=== PATIENT | male | born 1965 | race African-American/Black ===

== ENCOUNTER → 2016-11-29 | Outpatient (CLI) | payer OTHER ==
[~2016-11-29] VITALS: Ht 182.9 cm; Wt 110.2 kg
[~2016-11-29] MED LIST: ATOR40TA75 PO; NS 1,000 ML IV SCH; PROPOFOL 200 MG/20 ML VIAL As Ordered ONE; VITA100067 PO; VITA1CAP40 PO
--- NOTE | 2016-11-29 14:39 | ROOR ---
Patient Name: Cresencio Trujillo Procedure Date: 11/29/2016 2:12 PM Date of : 1965 Age: 51 Room: [facility] Gender: Male Note Status: Finalized Procedure: Colonoscopy Indications: High risk colon cancer surveillance: Personal history of colonic polyps Providers: Wiley Madera Jr, MD Referring MD: Carolina NORRIS [facility], [facility], Admin. Requesting Provider: Medicines: Propofol per Anesthesia Complications: No immediate complications. Procedure: Pre-Anesthesia Assessment: - Prior to the procedure, a History and Physical was performed, and patient medications and allergies were reviewed. The patient is competent. The risks and benefits of the procedure and the sedation options and risks were discussed with the patient. All questions were answered and informed consent was obtained. Patient identification and proposed procedure were verified by the physician and the nurse in the pre-procedure area and in the procedure room. Mental Status Examination: alert and oriented. Airway Examination: normal oropharyngeal airway and neck mobility. Respiratory Examination: clear to auscultation. CV Examination: normal. ASA Grade Assessment: II - A patient with mild systemic disease. After reviewing the risks and benefits, the patient was deemed in satisfactory condition to undergo the procedure. The anesthesia plan was to use moderate sedation / analgesia (conscious sedation). Immediately prior to administration of medications, the patient was re-assessed for adequacy to receive sedatives. The heart rate, respiratory rate, oxygen saturations, blood pressure, adequacy of pulmonary ventilation, and response to care were monitored throughout the procedure. The physical status of the patient was re-assessed after the procedure. The Colonoscope was introduced through the anus and advanced to the cecum, identified by appendiceal orifice and ileocecal valve. The colonoscopy was performed without difficulty. The patient tolerated the procedure well. The quality of the bowel preparation was adequate and good. Findings: The perianal and digital rectal examinations were normal. Pertinent negatives include normal sphincter tone, no palpable rectal lesions and no anal lesion or abnormality was detected. The sigmoid colon, descending colon, transverse colon, ascending colon, cecum, appendiceal orifice and ileocecal valve appeared normal. Four hyperplastic polyps were found in the rectum and recto-sigmoid colon. The polyps were diminutive in size. These polyps were removed with a hot snare. Resection was complete, but the polyp tissue was not retrieved. Impression: - The sigmoid colon, descending colon, transverse colon, ascending colon, cecum, appendiceal orifice and ileocecal valve are normal. - Four diminutive polyps in the rectum and at the recto-sigmoid colon, removed with a hot snare. Complete resection. Polyp tissue not retrieved. Recommendation: - Discharge patient to home (ambulatory). - Repeat colonoscopy in 5 years for surveillance. Wiley Madera MD Wiley Madera Jr, MD 11/29/2016 2:39:01 PM This report has been signed electronically. Number of Addenda: 0 Note Initiated On: 11/29/2016 2:12 PM Estimated Blood Loss: Estimated blood loss: none.
[2016-11-29 14:58] VITALS: BP 141/92
== END | disposition home or self-care (01) ==
LOC: M OPP 13:45 → EDBD 14:00
PROVIDERS: ATTEND Surgery
DX: Z09 Encounter for follow-up examination after completed treatment for conditions other than malignant neoplasm (principal); Z86.010 Personal history of colon polyps; D12.7 Benign neoplasm of rectosigmoid junction; K62.1 Rectal polyp; E78.5 Hyperlipidemia, unspecified; E66.9 Obesity, unspecified; Z87.891 Personal history of nicotine dependence; F12.20 Cannabis dependence, uncomplicated; Z79.899 Other long term (current) drug therapy; Z80.1 Family history of malignant neoplasm of trachea, bronchus and lung

== ENCOUNTER 2018-07-12 07:49 | Inpatient (IN) | payer OTHER ==
[~2018-07-12] VITALS: Ht 182.9 cm; Wt 108.6 kg
[~2018-07-12 07:49] MED LIST changes: -NS 1,000 ML IV SCH; -PROPOFOL 200 MG/20 ML VIAL As Ordered ONE; -VITA1CAP40 PO; +VITA50005 PO
[2018-07-12] MEDS ORDERED: ROSU10TA5 PO (08:00)
[2018-07-12] MEDS ORDERED: LOPR1TAB6 PO (08:00)
[2018-07-12 08:30] LABS: BASO % 0.2 % (0.0-1.0); EOS # 0.1 10^3/uL (0.0-0.50); EOS % 0.9 % (0.0-3.0); HEMATOCRIT 34.5 % (42.0-52.0); HEMOGLOBIN 11.5 g/dl (13.5-17.5); LYMPH # 1.5 10^3/uL (1.5-4.5); LYMPH % 27.5 % (24.0-44.0); MEAN CORPUSCULAR HEMOGLOBIN 27.3 pg (27.0-33.0); MEAN CORPUSCULAR HGB CONC 33.3 g/dl (32.0-36.5); MEAN CORPUSCULAR VOLUME 81.9 fl (80.0-96.0); MONO # 0.5 10^3/uL (0.0-0.8); MONO % 9.1 % (0.0-5.0); NEUTROPHILS # 3.3 10^3/uL (1.8-7.7); NEUTROPHILS % 61.7 % (36.0-66.0); PLATELET COUNT, AUTOMATED 144 10^3/uL (150-450); RED BLOOD COUNT 4.21 10^6/uL (4.30-6.10); WHITE BLOOD COUNT 5.3 10^3/uL (4.0-10.0)
[2018-07-12 08:42] LABS: INR 1.11; PROTHROMBIN TIME 14.4 SECONDS (12.1-14.4)
[2018-07-12 08:43] LABS: PARTIAL THROMBOPLASTIN TIME 33.9 SECONDS (25.4-37.6)
--- NOTE | 2018-07-12 08:43 | REP ---
Chest two views HISTORY: Chest pain Comparison: None A minimal increase in interstitial markings is present in the lungs. The cardiac silhouette is enlarged. The pulmonary vasculature is prominent. The heart is normal in size. The pulmonary vasculature is normal in appearance. The bony structure is intact. IMPRESSION: There is a minimal increase in interstitial markings in the lungs. This may represent interstitial edema or infiltrates. Electronically Signed by jR Ordaz MD 07/12/2018 08:35 A
[2018-07-12 08:45] LABS: D-DIMER QUANT 3378.01 ng/ml (<500)
[2018-07-12 08:59] LABS: ALBUMIN 3.8 GM/DL (3.2-5.2); ALT/SGPT 54 U/L (12-78); BILIRUBIN,DIRECT 0.4 MG/DL (0.0-0.2); BILIRUBIN,TOTAL 1.8 MG/DL (0.2-1.0); BLOOD UREA NITROGEN 23 MG/DL (7-18); CALCIUM LEVEL 8.7 MG/DL (8.5-10.1); CARBON DIOXIDE LEVEL 25 MEQ/L (21-32); CHLORIDE LEVEL 108 MEQ/L (98-107); CPK CREATINE PHOSPHOKINASE 269 U/L (39-308); CREATININE FOR GFR 1.21 MG/DL (0.70-1.30); FREE T4 2.27 NG/DL (0.76-1.46); GLOMERULAR FILTRATION RATE > 60.0 (>56); GLUCOSE, FASTING 124 MG/DL (70-100); LIPASE 97 U/L (73-393); MAGNESIUM LEVEL 1.9 MG/DL (1.8-2.4); MB/CK RELATIVE INDEX 0.89 (< OR =4); NT-PRO BNP 4063 PG/ML (<125); POTASSIUM SERUM 3.6 MEQ/L (3.5-5.1); SODIUM LEVEL 141 MEQ/L (136-145); TROPONIN I 0.35 NG/ML (< 0.10)
[2018-07-12] MEDS ORDERED: ISOVUE-370 76% 100ML VIAL (Q9967) As Ordered ONE (09:10)
[2018-07-12] MEDS ORDERED: FUROSEMIDE 20 MG/2 ML VIAL (J1940) IV ONE ×2 (09:15→13:00)
[2018-07-12] MEDS ORDERED: NS 1,000 ML IV ONE (09:15)
[2018-07-12] MEDS ORDERED: ASPIRIN 81 MG CHEW TABLET PO ONE (09:15)
--- NOTE | 2018-07-12 09:54 | REP ---
CT ANGIO CHEST: HISTORY: Tachypnea. CONTRAST: Isovue 370, 75 mL. There are no filling defects in the main , right and left pulmonary arteries or their branches. Peribronchial cuffing is present. There is no pleural effusion. The heart is normal in size. There is no aneurysm. There is no mediastinal mass. Minimal degenerative change is present in the thoracic spine. IMPRESSION: 1. There is no pulmonary embolism. 2. There is peribronchial cuffing. This may represent asthma, bronchitis, or possibly interstitial pneumonitis. Electronically Signed by Rj Ordaz MD 07/12/2018 09:59 A
[2018-07-12 11:36] LABS: MB/CK RELATIVE INDEX 0.97 (< OR =4); TROPONIN I 0.33 NG/ML (< 0.10)
[2018-07-12] MEDS ORDERED: VITA-183 PO (12:25)
[2018-07-12] MEDS ORDERED: DEXT118S PO (12:25)
[2018-07-12] MEDS ORDERED: ROSU20TA4 PO (12:25)
[2018-07-12 13:35] VITALS: BP 143/106
[2018-07-12] MEDS: ENOXAPARIN 40 MG/0.4 ML SYRINGE (J1650) SC SCH (13:53)
[2018-07-12] MEDS: METOPROLOL TART 50 MG TAB PO SCH ×2 (13:56→20:17)
--- NOTE | 2018-07-12 14:47 | ECGEPIP ---
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
--- NOTE | 2018-07-12 14:50 | ECGEPIP ---
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
[2018-07-12 15:37] VITALS: BP 138/98
[2018-07-12 16:00] VITALS: BP 142/98
--- NOTE | 2018-07-12 16:05 | HPEPDOC ---
General Date of Admission Jul 12, 2018 at 12:27 Chief Complaint The patient is a 52-year-old male admitted with a reason for visit of CHF. History of Present Illness 52-year-old male with past medical history of hypertension and dyslipidemia presents to the ER with chief complaint of increasing fatigue over the last 4 months, and shortness of breath over the last 2 weeks. The patient states that his symptoms began early in the year when he began to feel increasingly fatigued. This culminated over the last several days when he began to feel increasing shortness of breath when walking across a room. He reports feeling l jennifer he was walking underwater. Normally, the patient states that he was not restricted by any physical activity. He states that he was able to get around okay about 6 months ago. However, over the last 2 weeks he states that he is feeling more fatigued and short of breath with minimal activity. He also describes feeling short of breath when laying flat at night. He denies any lower extremity swelling or complaints of chest pain. He denies any history of coronary artery disease. In addition, the patient denies any fevers, chills, abdominal pain, cough, sputum production, or any nausea/vomiting/diarrhea. In the ER, patient was noted to be in decompensated congestive heart failure. He was given a small dose of IV Lasix and subsequently put out 1.5 L of urine with improvement of his symptoms. The patient will be admitted to the hospitalist service for further evaluation and management. Home Medications Scheduled Cholecalciferol (Vitamin D3) (Vitamin D3) 1,000 Unit Capsule, 1,000 UNIT PO QHS, (Reported) Metoprolol Tartrate (Lopressor) 50 Mg Tablet, 50 MG PO BID, (Reported) Rosuvastatin Calcium (Rosuvastatin Calcium) 20 Mg Tablet, 10 MG PO QHS, (Reported) Scheduled PRN Dextromethorphan Hb/Doxylamine (Nighttime Cough Liquid) 118 Ml Solution, 1 DOSE PO QHS PRN for COUGH, (Reported) Allergies Coded Allergies: No Known Allergies (Unverified , 11/22/16) Past Medical History Medical History As noted in HPI Social History * Smoker: former Smoker (Smoked 1-2PPD of tobacco for 30+ years, quit 10 years ago) Alcohol: occationally Drugs: marijuana (daily, q2d) A-FIB/CHADSVASC A-FIB History Current/History of A-Fib/PAF?: No Review of Systems Other systems 10 point review of systems negative unless otherwise specified in HPI. Physical Examination General Exam: Positive: Alert, Cooperative, No Acute Distress ENT Exam: Positive: Atraumatic, Mucous membr. moist/pink Neck Exam: Positive: JVD Chest Exam: Positive: Rales (faint bibasilar rales noted on auscultation bilaterally) Heart Exam: Positive: Rate Normal, Normal S1, Normal S2 Telemetry: Positive: Sinus Abdomen Exam: Positive: Soft; Negative: Tenderness Extremity Exam: Negative: Tenderness, Swelling Psych Exam: Positive: Oriented x 3 Vital Signs Vital Signs Date Time Temp Pulse Resp B/P (MAP) Pulse Ox O2 Delivery O2 Flow Rate FiO2 07/12/18 15:37 138/98 (111) 07/12/18 13:56 79 07/12/18 13:35 98.1 18 98 07/12/18 12:30 Room Air Laboratory Data Labs 24H Laboratory Tests 2 07/12/18 08:18: Prothrombin Time 14.4, Prothromb Time International Ratio 1.11, Activated Partial Thromboplast Time 33.9, D-Dimer, Quantitative 3378.01H 07/12/18 08:19: Immature Granulocyte % (Auto) 0.6, White Blood Count 5.3, Red Blood Count 4.21L, Hemoglobin 11.5L, Hematocrit 34.5L, Mean Corpuscular Volume 81.9, Mean Corpuscular Hemoglobin 27.3, Mean Corpuscular Hemoglobin Concent 33.3, Red Cell Distribution Width 16.8H, Platelet Count 144L, Neutrophils (%) (Auto) 61.7, Lymphocytes (%) (Auto) 27.5, Monocytes (%) (Auto) 9.1H, Eosinophils (%) (Auto) 0.9, Basophils (%) (Auto) 0.2, Neutrophils # (Auto) 3.3, Lymphocytes # (Auto) 1.5, Monocytes # (Auto) 0.5, Eosinophils # (Auto) 0.1, Basophils # (Auto) 0.0, Nucleated Red Blood Cells % (auto) 0.0, Anion Gap 8, Glomerular Filtration Rate > 60.0, Calcium Level 8.7, Magnesium Level 1.9, Aspartate Amino Transf (AST/SGOT) 29, Alanine Aminotransferase (ALT/SGPT) 54, Alkaline Phosphatase 94, Total Bilirubin 1.8H, Direct Bilirubin 0.4H, Total Creatine Kinase 269, Creatine Kinase MB 2.0, Creatine Kinase MB Relative Index 0.89, Troponin I 0.35H, NC-Rxb-U-Type Natriuretic Peptide 4063H, Total Protein 7.0, Albumin 3.8, Albumin/Globulin Ratio 1.19, Lipase 97, Thyroid Stimulating Hormone (TSH) 1.570, Free Thyroxine 2.27H 07/12/18 10:56: Total Creatine Kinase 248, Creatine Kinase MB 2.0, Creatine Kinase MB Relative Index 0.97, Troponin I 0.33H CBC/BMP Laboratory Tests 07/12/18 08:19 Red Blood Count 4.21 L, Mean Corpuscular Volume 81.9, Mean Corpuscular Hemoglobin 27.3, Mean Corpuscular Hemoglobin Concent 33.3, Red Cell Distribution Width 16.8 H, Neutrophils (%) (Auto) 61.7, Lymphocytes (%) (Auto) 27.5, Monocytes (%) (Auto) 9.1 H, Eosinophils (%) (Auto) 0.9, Basophils (%) (Auto) 0.2, Neutrophils # (Auto) 3.3, Lymphocytes # (Auto) 1.5, Monocytes # (Auto) 0.5, Eosinophils # (Auto) 0.1, Basophils # (Auto) 0.0 Plan / VTE VTE Prophylaxis Ordered?: Yes Plan Plan Decompensated CHF Patient clinically and radiographically with evidence of decompensated CHF 2D ECHO ordered IV Lasix Monitor I/O's Fluid Restriction Daily Weights We will cont to monitor the patient's clinical condition Elevated Troponin Markers likely 2/2 Decompensated CHF EKG with non-specific ST changes with no prior tracings to compare to Patient denies any c/o chest pain, palpitations Dr. Bynum of Cardiology consulted, discussed the case with him and he does not recommend transfer at this time for cardiac catheterization, as this is likely secondary to decompensated CHF. ASA added, Cont Metoprolol, Statin 2D Echo ordered as mentioned above Monitor on Telemetry We will continue to monitor serial troponin markers Hypertension Cont Metoprolol Dyslipidemia Cont Statin DVT Prophylaxis Lovenox LORI CARMEN MD Jul 12, 2018 16:05
[2018-07-12] MEDS ORDERED: FUROSEMIDE 40 MG/4 ML VIAL (J1940) IV SCH (17:00)
[2018-07-12 20:00] VITALS: BP 154/68
[2018-07-12] MEDS: VITAMIN D 1,000 INTERNATIONAL UNITS TABLET PO SCH (20:17)
[2018-07-12] MEDS: ROSUVASTATIN 10 MG TAB (CRESTOR) PO SCH (20:17)
[2018-07-12 20:22] LABS: MB/CK RELATIVE INDEX 0.84 (< OR =4); TROPONIN I 0.36 NG/ML (< 0.10)
[2018-07-12 23:59] VITALS: BP 141/98
[2018-07-13 04:00] VITALS: BP 149/91
[2018-07-13 05:26] LABS: HEMATOCRIT 34.8 % (42.0-52.0); HEMOGLOBIN 11.4 g/dl (13.5-17.5); MEAN CORPUSCULAR HEMOGLOBIN 26.6 pg (27.0-33.0); MEAN CORPUSCULAR HGB CONC 32.8 g/dl (32.0-36.5); MEAN CORPUSCULAR VOLUME 81.3 fl (80.0-96.0); PLATELET COUNT, AUTOMATED 154 10^3/uL (150-450); RED BLOOD COUNT 4.28 10^6/uL (4.30-6.10); WHITE BLOOD COUNT 6.2 10^3/uL (4.0-10.0)
[2018-07-13 05:40] LABS: HEMOGLOBIN A1c 6.4 %
[2018-07-13 05:51] LABS: ALBUMIN 3.3 GM/DL (3.2-5.2); ALT/SGPT 48 U/L (12-78); BILIRUBIN,DIRECT 0.3 MG/DL (0.0-0.2); BILIRUBIN,TOTAL 1.7 MG/DL (0.2-1.0); BLOOD UREA NITROGEN 22 MG/DL (7-18); CALCIUM LEVEL 8.8 MG/DL (8.5-10.1); CARBON DIOXIDE LEVEL 29 MEQ/L (21-32); CHLORIDE LEVEL 104 MEQ/L (98-107); CHOLESTEROL LEVEL 161 MG/DL (<200); CHOLESTEROL RISK RATIO 4.351 (<5); CPK CREATINE PHOSPHOKINASE 169 U/L (39-308); CREATININE FOR GFR 1.44 MG/DL (0.70-1.30); GLOMERULAR FILTRATION RATE > 60.0 (>56); GLUCOSE, FASTING 160 MG/DL (70-100); HDL CHOLESTEROL 37 MG/DL (>40); LDL CHOLESTEROL 105 MG/DL (<100); MAGNESIUM LEVEL 1.8 MG/DL (1.8-2.4); MB/CK RELATIVE INDEX 0.89 (< OR =4); NON-HDL-C 124 MG/DL; POTASSIUM SERUM 3.5 MEQ/L (3.5-5.1); SODIUM LEVEL 140 MEQ/L (136-145); TRIGLYCERIDES LEVEL 94 MG/DL (<150)
[2018-07-13 08:00] VITALS: BP 130/98
[2018-07-13] MEDS: ENOXAPARIN 40 MG/0.4 ML SYRINGE (J1650) SC SCH (08:02)
[2018-07-13] MEDS: METOPROLOL TART 50 MG TAB PO SCH ×2 (08:16→20:01)
[2018-07-13] MEDS: ASPIRIN 81 MG ENTERIC TAB PO SCH (08:16)
--- NOTE | 2018-07-13 10:26 | ECHO ---
DATE OF STUDY: 07/12/2018 REFERRING PROVIDER: Celso Oglesby MD PATIENT LOCATION: Room 3222. REASON FOR THE ECHOCARDIOGRAM: Heart failure, unspecified. 2D MEASUREMENTS: IVS: 1.2 cm LV: 5.7 cm LVPW: 1.2 cm LA: 4.6 cm Aorta: 2.8 cm IVC: 1.7 cm DOPPLER MEASUREMENTS: Peak velocity across the aortic valve: 1.2 m/s Peak velocity across the LVOT: 0.63 m/s Mitral E: 0.97 Mitral A: 0.50 with a ratio of 1.9 Maximum tricuspid valve velocity: 2.5 m/s 2D COMMENTS: 1. Normal left ventricular wall thickness with mildly increased left ventricular size and a depressed global left ventricular systolic function. The estimated left ventricular systolic ejection fraction is 30% to 35%. 2. Mildly dilated left atrium. The right atrium also appeared to be mildly enlarged in limited views. Normal right ventricle. 3. The atrial septum appeared to be normal without evidence of defect or shunt. 4. Normal aortic root. 5. No pericardial effusion seen. 6. The aortic valve, mitral valve, tricuspid valve, and pulmonic valve appeared to be normal. 7. The inferior vena cava was normal in size. DOPPLER: It detects trace aortic regurgitation, moderate mitral regurgitation, and mild tricuspid regurgitation, as well as mild pulmonic regurgitation. The calculated pulmonary artery systolic pressure varies between 30-40 mmHg. A restrictive mitral inflow pattern was noted. IMPRESSION: 1. Moderate global left ventricular systolic dysfunction with mild eccentric left ventricular hypertrophy. There are some features of left ventricular diastolic dysfunction, a restrictive mitral inflow pattern was noted that can be a poor cardiac prognostic marker. 2. Mildly dilated left atrium with moderate mitral regurgitation. 3. Mild tricuspid regurgitation with mild pulmonary hypertension. The right atrium appeared to be mildly enlarged in limited views. 4. Trace aortic regurgitation. 5. Mild pulmonic regurgitation. 6. No prior study for comparison. [facility]
[2018-07-13 11:13] LABS: MB/CK RELATIVE INDEX 0.88 (< OR =4); TROPONIN I 0.44 NG/ML (< 0.10)
[2018-07-13 12:00] VITALS: BP 148/97
--- NOTE | 2018-07-13 12:01 | ECGEPIP ---
Stationary ECG Study [facility] Test Date: 2018-07-13 Pat Name: CRISTELA DENIS Department: Room: [place] [address] Gender: M Hypo Dipper: RENATO : 1965 Requested By: LORI ACEVES Order Number: [id number] Reading MD: Humza Linn Measurements Intervals [place] Rate: 80 P: 72 [place]: 189 QRS: 64 QRSD: 96 T: 50 QT: 386 QTc: 446 Interpretive Statements SINUS RHYTHM WITH OCCASIONAL VENTRICULAR PREMATURE COMPLEXES POSSIBLE RIGHT ATRIAL ENLARGEMENT LEFT ATRIAL ENLARGEMENT Previous septal q waves, delayed anterior R wave progession consider previous i ischemia. Similar to tracing done 07-12-18 with new pvcs Electronically Signed On 07-13-2018 12:01:02 EDT by Humza Linn
[2018-07-13] MEDS: VALSARTAN 40MG TABLET (DIOVAN) PO SCH ×2 (12:37→20:00)
--- NOTE | 2018-07-13 13:46 | IPNPDOC ---
Subjective Date Seen The patient was seen on 07/13/18. Subjective Chief Complaint/HPI Patient seen and examined at bedside today. States that he is feeling much better, and has been ambulating around in his room without any complaints of shortness of breath. He has diuresed a net negative of close to 4 L since admission. He denies any complaints of chest pain, palpitations, abdominal pain. Objective Physical Examination General Exam: Positive: Alert, Cooperative, No Acute Distress ENT Exam: Positive: Atraumatic, Mucous membr. moist/pink Chest Exam: Positive: Diminished; Negative: Wheezing Heart Exam: Positive: Rate Normal, Normal S1, Normal S2 Telemetry: Positive: Sinus Abdomen Exam: Positive: Soft; Negative: Tenderness Extremity Exam: Negative: Tenderness, Swelling Psych Exam: Positive: Oriented x 3 A-FIB/CHADSVASC A-FIB History Current/History of A-Fib/PAF?: No Assessment /Plan Plan/VTE VTE Prophylaxis Ordered?: Yes Plan Decompensated Combined Systolic and Diastolic CHF 2D ECHO notable for moderate global left ventricular systolic dysfunction with an EF of 30-35%, and left ventricular diastolic dysfunction Patient has diuresed close to a net negative of 4 L since admission, and notes that his respiratory status has significantly improved IV Lasix transitioned to by mouth, valsartan added to regimen Monitor I/O's Fluid Restriction Daily Weights Cardiology on consult We will cont to monitor the patient's clinical condition Elevated Troponin Markers likely 2/2 Decompensated CHF EKG with non-specific ST changes with no prior tracings to compare to Patient denies any c/o chest pain, palpitations Cont ASA, Cont Metoprolol, Statin 2D Echo as mentioned above Monitor on Telemetry We will continue to monitor serial troponin markers Possible underlying Chronic Kidney Disease vs Diuretic induced elevation of Serum Cr Serum Cr 1.2 on admission, 1.44 this AM after receiving Lasix intravenously No baseline serum creatinine available--order to obtain records from [place] placed We will continue to monitor Prediabetes Hemoglobin A1c noted to be 6.4% Patient counseled on dietary and lifestyle modifications He would like to incorporate this before starting any oral hypoglycemic medications Follow-up as an outpatient Hypertension Cont Metoprolol, valsartan added to regimen Dyslipidemia Cont Statin DVT Prophylaxis Lovenox SC VS, I&O, 24H, Fishbone Vital Signs/I&O Vital Signs Date Time Temp Pulse Resp B/P (MAP) Pulse Ox O2 Delivery O2 Flow Rate FiO2 07/13/18 12:37 148/78 07/13/18 12:00 97.3 96 22 100 07/12/18 12:30 Room Air I&O- Last 24 Hours up to 6 AM 07/13/18 06:00 Intake Total 1380 ml Output Total 4875 ml Balance -3495 ml Laboratory Data 24H LABS Laboratory Tests 2 07/12/18 18:57: Total Creatine Kinase 238, Creatine Kinase MB 2.0, Creatine Kinase MB Relative Index 0.84, Troponin I 0.36H 07/13/18 04:48: Total Creatine Kinase 169, Creatine Kinase MB 2.0, Creatine Kinase MB Relative Index 0.89, Troponin I 0.40H, Nucleated Red Blood Cells % (auto) 0.0, Anion Gap 7L, Glomerular Filtration Rate > 60.0, Estimated Mean Plasma Glucose 137H, Hemoglobin A1c 6.4, Calcium Level 8.8, Magnesium Level 1.8, Aspartate Amino Transf (AST/SGOT) 27, Alanine Aminotransferase (ALT/SGPT) 48, Alkaline Phosphatase 88, Total Bilirubin 1.7H, Direct Bilirubin 0.3H, Total Protein 7.0, Albumin 3.3, Albumin/Globulin Ratio 0.89L, Triglycerides Level 94, Total Cholesterol 161, LDL Cholesterol 105H, Non-HDL Cholesterol (LDL + VLDL) 124, Total HDL Cholesterol 37L, Cholesterol/HDL Ratio 4.351 07/13/18 10:39: Total Creatine Kinase 182, Creatine Kinase MB 2.0, Creatine Kinase MB Relative Index 0.88, Troponin I 0.44H CBC/BMP Laboratory Tests 07/13/18 04:48 Red Blood Count 4.28 L, Mean Corpuscular Volume 81.3, Mean Corpuscular Hemoglobin 26.6 L, Mean Corpuscular Hemoglobin Concent 32.8, Red Cell Distribution Width 16.4 H Microbiology Microbiology 07/12/18 Respiratory Virus Panel (PCR) ([id number]) - Final, Complete LORI ACEVES MD Jul 13, 2018 13:46
[2018-07-13 16:00] VITALS: BP 159/92
[2018-07-13 19:56] LABS: MB/CK RELATIVE INDEX 1.09 (< OR =4); TROPONIN I 0.41 NG/ML (< 0.10)
[2018-07-13 20:00] VITALS: BP 150/90
[2018-07-13] MEDS: ROSUVASTATIN 10 MG TAB (CRESTOR) PO SCH (20:00)
[2018-07-13] MEDS: VITAMIN D 1,000 INTERNATIONAL UNITS TABLET PO SCH (20:01)
[2018-07-13 23:59] VITALS: BP 147/98
[2018-07-14] VITALS (7 sets, daily range): BP systolic 134–160; BP diastolic 81–104
[2018-07-14 05:46] LABS: HEMATOCRIT 34.6 % (42.0-52.0); HEMOGLOBIN 11.3 g/dl (13.5-17.5); MEAN CORPUSCULAR HEMOGLOBIN 26.3 pg (27.0-33.0); MEAN CORPUSCULAR HGB CONC 32.7 g/dl (32.0-36.5); MEAN CORPUSCULAR VOLUME 80.5 fl (80.0-96.0); PLATELET COUNT, AUTOMATED 165 10^3/uL (150-450)
[2018-07-14 06:09] LABS: BLOOD UREA NITROGEN 22 MG/DL (7-18); CALCIUM LEVEL 8.5 MG/DL (8.5-10.1); CARBON DIOXIDE LEVEL 29 MEQ/L (21-32); CHLORIDE LEVEL 105 MEQ/L (98-107); CPK CREATINE PHOSPHOKINASE 150 U/L (39-308); CREATININE FOR GFR 1.16 MG/DL (0.70-1.30); GLOMERULAR FILTRATION RATE > 60.0 (>56); GLUCOSE, FASTING 106 MG/DL (70-100); MAGNESIUM LEVEL 1.8 MG/DL (1.8-2.4); MB/CK RELATIVE INDEX 1.27 (< OR =4); POTASSIUM SERUM 3.8 MEQ/L (3.5-5.1); SODIUM LEVEL 140 MEQ/L (136-145); TROPONIN I 0.43 NG/ML (< 0.10)
--- NOTE | 2018-07-14 08:59 | IPN ---
DATE: 07/14/2018 Mr. Go is feeling much better. He tells me that did not have any paroxysmal nocturnal dyspnea (PND), he was able to ambulate around the progressive care unit (PCU) yesterday without major difficulty. He has no specific complaints today. Vital Signs: Blood pressure this morning was 160/104. Heart rate has been mostly in 80s. He is afebrile. Saturation 98% on room air. Fluid balance yesterday was about 700 negative. Weight is documented at 109 kg. He is alert and oriented and appropriate. Jugular venous pulse (JVP) is not up. Lungs are clear. Heart exam reveals a regular rhythm. There is still a positive S3. I do not appreciate any distinct murmur of mitral regurgitation (MR) as such. Abdomen is soft and nontender. There is no peripheral edema. Laboratories: Basic metabolic panel - sodium 140, potassium 3.8, BUN 26, creatinine 1.2 and glucose 106. CBC - hemoglobin 11.3, hematocrit 34 and platelet count 165,000. ASSESSMENT/PLAN: Mr. Gill is a 52-year-old man who presents with congestive heart failure and is found to have cardiomyopathy with estimated left ventricular ejection fraction (LVEF) 30-35%. He clinically rapidly improved. I am still not happy with his condition. First of all, his blood pressure is still too high and #2 he continues to have frequent PVCs on telemetry. I am going to make some subtle changes in his medications. First of all, I am going to advance the dose of beta-deb and switch him from metoprolol to carvedilol that has a superior choice for people with cardiomyopathy. I am also going to add a small dose of spironolactone, his potassium is slightly low and there is a proven benefit for this class of medications. With these changes, I am hoping he will be able to go home tomorrow.
[2018-07-14] MEDS: ENOXAPARIN 40 MG/0.4 ML SYRINGE (J1650) SC SCH (09:00)
[2018-07-14] MEDS ORDERED: FUROSEMIDE 40 MG TAB PO SCH (09:00)
[2018-07-14] MEDS: CARVedilol 12.5 MG TAB PO SCH ×2 (10:09→21:18)
[2018-07-14] MEDS: FUROSEMIDE 20 MG TAB PO SCH (10:09)
[2018-07-14] MEDS: ASPIRIN 81 MG ENTERIC TAB PO SCH (10:09)
[2018-07-14] MEDS: SPIRONOLACTONE 12.5MG PER 1/2 TABLET PO SCH (10:09)
[2018-07-14] MEDS: VALSARTAN 40MG TABLET (DIOVAN) PO SCH ×2 (10:10→21:17)
--- NOTE | 2018-07-14 11:07 | CR ---
DATE OF CONSULTATION: 07/13/2018 REFERRING PROVIDER: Celso Oglesby MD REASON FOR THE CONSULT: Heart failure. PRIMARY PROVIDER: [facility] ([place]) in [place]. HISTORY OF PRESENT ILLNESS: 52-year-old -British male with a history of hyperlipidemia and hypertension for which he had started out to be treated at the beginning of the most recent winter, has been doing well, but it seems that he has been having increasing shortness of breath with activities, relieved with rest. In the last one to two months, he also has been having orthopnea and paroxysmal nocturnal dyspnea (PND), cough and more pedal edema. Because he has to cut back significantly in his activities, he decided to come to the emergency room (ER) yesterday for further evaluation and he was found to be in decompensated congestive heart failure. He was given IV Lasix and then admitted for further management and monitoring. His troponin also was mildly abnormal. He responded very well to the IV Lasix; and since in the hospital for the last 24 hours, he has had a negative fluid balance of about 2.9 liters. He also complained of palpitations with activities prior to coming here to the hospital. This morning, he feels much better. He was able to sleep well. He denies any chest pain, he has not been having any chest pain. He denies any syncope. He has not focal manifestation. He has no pedal edema. He has no reported fever or chills. There is no bleeding problems. He has no focal manifestation. He has been taking his current medications regularly prior to his hospitalization, but not quite compliant with diet he stated. He has a past medical history positive as mentioned above for hyperlipidemia, hypertension. He was told that he has a mildly abnormal blood sugar and to watch his sweets, otherwise he would be on medication for diabetes mellitus. There is no known history of significant valvular heart disease, positive coronary artery disease, cardiopathy, prior history of congestive heart failure, non-kidney disease, thyroid disorders, bleeding problems, transient ischemic attack (TIA)/cerebrovascular accident (CVA), sudden cardiac . PAST SURGICAL HISTORY: Positive for circumcision, otherwise unremarkable. MEDICATIONS PRIOR TO COMING TO THE HOSPITAL: Metoprolol tartrate 50 mg twice a day, rosuvastatin 20 mg by mouth daily and vitamin D3 1000 units by mouth before food. CURRENT MEDICATIONS ARE: Furosemide 40 mg by mouth daily, aspirin 81 mg by mouth daily, vitamin D 1000 units by mouth before food, rosuvastatin 10 mg by mouth daily, Lovenox 40 mg subcutaneous daily, metoprolol tartrate 50 mg by mouth twice a day. FAMILY HISTORY: Unknown. The patient stated he was adopted. SOCIAL HISTORY: The patient denies any smoking or ETOH abuse. He has a drink on occasion. His diet has been regular, he stated that he loves salt. He has been retired from the and he currently works in [employer]. ALLERGIES: No known drug allergies. PHYSICAL EXAMINATION: The patient is alert and oriented, very pleasant. His blood pressure today is 130/98 with a pulse of 53, respirations 18 and maximum temperature was 97.8 degrees Fahrenheit with oxygen saturation of 93-100% on room air. He has a negative fluid balance of 2.9 liters since his hospitalization. Examination of the head: Atraumatic. Fundus examination was not done. Neck: Supple and no jugular venous distension (JVD) appreciated. Lungs: Did not have any wheezing or crackles. The heart examination revealed normal S1, S2 with premature beats. The point of maximal impulse (PMI) is displaced inferiorly and anteriorly. There is no rub. There is a systolic murmur grade1/6 at the lower left sternal border and apex, some radiation to the axilla. Abdomen is soft and nontender. Bowel sounds active. Extremities reveal no pedal edema. Peripheral pulses, were +2 and equal. Neurological examination is negative for focal deficit. LABORATORY: CBC done today revealed WBC of 6.2, hemoglobin 11.4, hematocrit 34.8 and platelets 154,000. On admission, CBC revealed WBC of 5.3, hemoglobin 11.5, hematocrit 35.5, and platelets 144,000. BMP done today revealed a sodium of 140, potassium 3.5, chloride 104, CO2 25, BUN 22, creatinine 1.44, GFR more than 60. Fasting glucose 160 and calcium 8.8, magnesium is 1.8. Liver enzymes revealed a total bilirubin of 1.7, direct bilirubin of 0.3. AST 27, ALT 48, alkaline phosphatase 88, total protein 7.0 and albumin 3.3. Lipid profile revealed a total cholesterol of 161 with an LDL cholesterol of 105 and triglycerides 94 and total HDL of 37. ProBNP on admission was 4,063. Troponin was 0.35, 0.33, 0.36 and 0.40. PT on admission was 14.4 with an INR of 1.11 and APTT of 33.9. D-dimer was 3,378. Chest x-ray on admission revealed minimally increased interstitial markings, cardiomegaly. A chest CT done yesterday was negative for pulmonary embolism. There were findings that may be related to asthma versus bronchitis versus interstitial pneumonitis. The heart size was reported to be normal. No aneurysm. No mediastinal mass. Echocardiogram done yesterday and it revealed a moderate depressed global left ventricular systolic dysfunction with moderate mitral regurgitation. Full details not available at this present time. Electrocardiogram done on 07/12/2018 revealed normal sinus rhythm with 77 beats per minute and possible prior septal infarct, displacement. No specific ST-T abnormalities noted in the inferolateral leads. There is also left atrial enlargement. No prior for comparison. Electrocardiogram (EKG) done today, 07/13/2018 revealed normal sinus rhythm with relative PVCs, left atrial abnormality, possible prior septal infarct that may be related to underlying left ventricular hypertrophy. ST-T abnormality noted on prior electrocardiogram (EKG) has improved. PVCs are new. IMPRESSION: 1. Decompensated congestive heart failure, acute secondary to left ventricular systolic dysfunction. The etiology is not quite clear. He denies any ETOH abuse. This may be related to longstanding uncontrolled hypertension versus underlying valvular heart disease. At one point, we might need to reassess his mitral regurgitation. Also, we will need to rule out underlying coronary artery disease (CAD), and this was discussed with him. He will continue the beta deb and I have added an ARB with valsartan was indication for left ventricular systolic dysfunction. Will need to monitor closely his BUN and creatinine and serum potassium. He is not getting that much fluids and I think upon discharge, we can cut back his furosemide to 20 mg by mouth daily from 40 mg by mouth daily, that will be 20 mg by mouth daily. If he is discharged tomorrow or on Saturday, I will see him at the office on July 23, and this was discussed with him; and at that time, we will check his urine creatinine and serum potassium. His stress test also would be scheduled. He appears to be very stable and his left ventricular ejection fraction is about 25, have not been advised indication at this present time for a life vest. 2. Hypertension, not quite under control and he will continue the beta deb and I have added the valsartan at the current dose. It would be increased as needed to control his blood pressure. We have discussed in details about low salt diet, but this is going to be a struggle for him. 3. Hyperlipidemia on a statin; and if his LDL cholesterol remains the same, we should increase the rosuvastatin and this can be done as outpatient. 4. Abnormal fasting blood sugar and the patient is aware of that. He is trying a low calorie diet, but he loves his cake he stated. We discussed about low calorie diet. He is trying, he is willing to do that in order to avoid any more medications. 5. Mild anemia and this could be addressed with the [facility] ([place]). 6. Elevated serum creatinine noted today. Probably due to the diuretics. It is on hold today and he is going to start by mouth Lasix tomorrow; and upon discharge, he can decrease it to 20 mg by mouth daily. He will need to be monitored as an outpatient; he is going to be on the ARB. It was a pleasure to participate in the care of . Cresencio Trujillo for his underlying cardiac condition. I will continue to monitor along with you; and upon discharge, I will see him as outpatient. The case was discussed with his hospitalist.
--- NOTE | 2018-07-14 11:53 | IPNPDOC ---
Subjective Date Seen The patient was seen on 07/14/18. Subjective Chief Complaint/HPI Patient seen and examined at the bedside. Reports that his breathing is improved, and he has been walking in the hallways. States that it still is not back to his baseline yet. Denies any complaints of chest pain, palpitations. Objective Physical Examination General Exam: Positive: Alert, Cooperative, No Acute Distress ENT Exam: Positive: Atraumatic, Mucous membr. moist/pink Chest Exam: Positive: Diminished; Negative: Wheezing Heart Exam: Positive: Rate Normal, Normal S1, Normal S2 Telemetry: Positive: Sinus Abdomen Exam: Positive: Soft; Negative: Tenderness Extremity Exam: Negative: Tenderness, Swelling Psych Exam: Positive: Oriented x 3 A-FIB/CHADSVASC A-FIB History Current/History of A-Fib/PAF?: No Assessment /Plan Plan/VTE VTE Prophylaxis Ordered?: Yes Plan Decompensated Combined Systolic and Diastolic CHF 2D ECHO notable for moderate global left ventricular systolic dysfunction with an EF of 30-35%, and left ventricular diastolic dysfunction Patient has diuresed and his respiratory status has significantly improved since admission IV Lasix transitioned to by mouth, valsartan and aldactone added to regimen Monitor I/O's Fluid Restriction Daily Weights Cardiology on consult We will cont to monitor the patient's clinical condition Elevated Troponin Markers likely 2/2 Decompensated CHF EKG with non-specific ST changes with no prior tracings to compare to Patient denies any c/o chest pain, palpitations Cont ASA, Cont Metoprolol, Statin 2D Echo as mentioned above Monitor on Telemetry We will continue to monitor serial troponin markers Possible underlying Chronic Kidney Disease vs Diuretic induced elevation of Serum Cr Records from [place] pending We will continue to monitor Prediabetes Hemoglobin A1c noted to be 6.4% Patient counseled on dietary and lifestyle modifications He would like to incorporate this before starting any oral hypoglycemic medications Follow-up as an outpatient Hypertension Cont Metoprolol, valsartan, lasix, and aldactone Dyslipidemia Cont Statin DVT Prophylaxis Lovenox SC Dispo--pending continued clinical improvement, anticipate D/C in 24-48hrs. VS, I&O, 24H, Fishbone Vital Signs/I&O Vital Signs Date Time Temp Pulse Resp B/P (MAP) Pulse Ox O2 Delivery O2 Flow Rate FiO2 07/14/18 10:09 88 160/104 07/14/18 04:00 97.4 18 98 07/12/18 12:30 Room Air I&O- Last 24 Hours up to 6 AM 07/14/18 06:00 Intake Total 1020 ml Output Total 1600 ml Balance -580 ml Laboratory Data 24H LABS Laboratory Tests 2 07/13/18 19:21: Total Creatine Kinase 165, Creatine Kinase MB 2.0, Creatine Kinase MB Relative Index 1.09, Troponin I 0.41H 07/14/18 05:06: Total Creatine Kinase 150, Creatine Kinase MB 2.0, Creatine Kinase MB Relative Index 1.27, Troponin I 0.43H, Nucleated Red Blood Cells % (auto) 0.0, Anion Gap 6L, Glomerular Filtration Rate > 60.0, Blood Urea Nitrogen 22H, Creatinine 1.16, Sodium Level 140, Potassium Level 3.8, Chloride Level 105, Carbon Dioxide Level 29, Calcium Level 8.5, Magnesium Level 1.8 CBC/BMP Laboratory Tests 07/14/18 05:06 Red Blood Count 4.30, Mean Corpuscular Volume 80.5, Mean Corpuscular Hemoglobin 26.3 L, Mean Corpuscular Hemoglobin Concent 32.7, Red Cell Distribution Width 16.3 H, Calcium Level 8.5, Total Creatine Kinase 150 Microbiology Microbiology 07/12/18 Respiratory Virus Panel (PCR) ([facility]) - Final, Complete LORI ACEVES MD Jul 14, 2018 11:53
[2018-07-14] MEDS: VITAMIN D 1,000 INTERNATIONAL UNITS TABLET PO SCH (21:17)
[2018-07-14] MEDS: ROSUVASTATIN 10 MG TAB (CRESTOR) PO SCH (21:17)
[2018-07-15 04:00] VITALS: BP 138/98
[2018-07-15 06:19] LABS: HEMATOCRIT 35.7 % (42.0-52.0); HEMOGLOBIN 11.6 g/dl (13.5-17.5); MEAN CORPUSCULAR HEMOGLOBIN 26.3 pg (27.0-33.0); MEAN CORPUSCULAR HGB CONC 32.5 g/dl (32.0-36.5); PLATELET COUNT, AUTOMATED 184 10^3/uL (150-450); RED BLOOD COUNT 4.41 10^6/uL (4.30-6.10); WHITE BLOOD COUNT 5.2 10^3/uL (4.0-10.0)
[2018-07-15 06:40] LABS: BLOOD UREA NITROGEN 21 MG/DL (7-18); CALCIUM LEVEL 8.5 MG/DL (8.5-10.1); CARBON DIOXIDE LEVEL 27 MEQ/L (21-32); CHLORIDE LEVEL 106 MEQ/L (98-107); CREATININE FOR GFR 1.04 MG/DL (0.70-1.30); GLOMERULAR FILTRATION RATE > 60.0 (>56); GLUCOSE, FASTING 107 MG/DL (70-100); POTASSIUM SERUM 3.9 MEQ/L (3.5-5.1); SODIUM LEVEL 139 MEQ/L (136-145)
[2018-07-15 08:00] VITALS: BP 140/106
[2018-07-15] MEDS: SPIRONOLACTONE 12.5MG PER 1/2 TABLET PO SCH (08:53)
[2018-07-15] MEDS: ASPIRIN 81 MG ENTERIC TAB PO SCH (08:54)
[2018-07-15] MEDS: FUROSEMIDE 20 MG TAB PO SCH (08:54)
[2018-07-15] MEDS: CARVedilol 12.5 MG TAB PO SCH ×2 (08:55→21:57)
[2018-07-15] MEDS: ENOXAPARIN 40 MG/0.4 ML SYRINGE (J1650) SC SCH (08:57)
[2018-07-15] MEDS ORDERED: VALSARTAN 80 MG TAB (DIOVAN) PO SCH (09:00)
--- NOTE | 2018-07-15 10:38 | IPNPDOC ---
Subjective Date Seen The patient was seen on 07/15/18. Subjective Chief Complaint/HPI CHF General: Denies: Chills Pulmonary: Denies: Dyspnea, Cough Cardiovascular: Denies: Chest Pain, Palpitations Gastrointestinal: Denies: Nausea, Vomiting Neurological: Reports: Weakness Objective Physical Examination General Exam: Positive: Alert, Cooperative, No Acute Distress ENT Exam: Positive: Atraumatic, Mucous membr. moist/pink Chest Exam: Positive: Diminished; Negative: Wheezing Heart Exam: Positive: Rate Normal, Normal S1, Normal S2; Negative: Murmurs, Rubs Telemetry: Positive: Sinus Abdomen Exam: Positive: Normal bowel sounds, Soft; Negative: Tenderness Extremity Exam: Negative: Tenderness, Swelling Psych Exam: Positive: Oriented x 3 A-FIB/CHADSVASC A-FIB History Current/History of A-Fib/PAF?: No Assessment /Plan Assessment CARDIOLOGY NOTE FOR DR MATHIS ASSESSMENT/PLAN: Mr. Gill is a 52-year-old man who presents with congestive heart failure and is found to have cardiomyopathy with estimated left ventricular ejection fr action (LVEF) 30-35%. 1. CHF with cardiomyopathy and episodes of non-sustained v-tach -overnight telemetry was reviewed, he is still unfortunately having non- sustained episodes of v-tach., 2-5 beats. It was discussed with the pt. he would benefit from having a life vest prior to discharge and also beginning Entresto, and discontinuing his valsartan. We will provide first dose of Entresto (and d/c valsartan) in hospital and will check with our office to see if we have samples that could get him through at least a few weeks as the medication is very expensive and unsure if his [facility] benefits would cover it. We will check with PFS to help with this. In the mean time, he continues on Coreg and Spirnolactone, he feels well today and is ready to go home however we will have to give him one dose of Entresto and see how he tolerates it today. Plan/VTE VTE Prophylaxis Ordered?: Yes VS, I&O, 24H, Fishbone Vital Signs/I&O Vital Signs Date Time Temp Pulse Resp B/P (MAP) Pulse Ox O2 Delivery O2 Flow Rate FiO2 07/15/18 08:55 76 140/106 07/15/18 08:00 97.7 18 100 07/12/18 12:30 Room Air I&O- Last 24 Hours up to 6 AM 07/15/18 06:00 Intake Total 1440 ml Output Total 2150 ml Balance -710 ml Laboratory Data 24H LABS Laboratory Tests 2 07/15/18 05:39: Nucleated Red Blood Cells % (auto) 0.0, Anion Gap 6L, Glomerular Filtration Rate > 60.0, Blood Urea Nitrogen 21H, Creatinine 1.04, Sodium Level 139, Potassium Level 3.9, Chloride Level 106, Carbon Dioxide Level 27, Calcium Level 8.5, Mag nesium Level 2.0 CBC/BMP Laboratory Tests 07/15/18 05:39 Red Blood Count 4.41, Mean Corpuscular Volume 81.0, Mean Corpuscular Hemoglobin 26.3 L, Mean Corpuscular Hemoglobin Concent 32.5, Red Cell Distribution Width 16.2 H, Calcium Level 8.5 Microbiology Microbiology 07/12/18 Respiratory Virus Panel (PCR) ([facility]) - Final, Complete GME ATTESTATION GME ATTESTATION My faculty preceptor for this patient encounter was physically present during the encounter and was fully available. All aspects of the patient interview, examination, medical decision making process, and medical care plan development were reviewed and approved by the faculty preceptor. The faculty preceptor is aware and concurs with the plan as stated in the body of this note and will attest to such by his/her cosignature. DAMIEN CLAY DO Jul 15, 2018 10:38
--- NOTE | 2018-07-15 11:25 | IPNPDOC ---
Subjective Date Seen The patient was seen on 07/15/18. Subjective Chief Complaint/HPI Patient seen and examined at the bedside. Reports that his breathing is much better and he has been walking in the hallways without any shortness of breath. He denies any chest pain or palpitations. Objective Physical Examination General Exam: Positive: Alert, Cooperative, No Acute Distress ENT Exam: Positive: Atraumatic, Mucous membr. moist/pink Chest Exam: Positive: Diminished; Negative: Wheezing Heart Exam: Positive: Rate Normal, Normal S1, Normal S2; Negative: Murmurs, Rubs Telemetry: Positive: Sinus Abdomen Exam: Positive: Normal bowel sounds, Soft; Negative: Tenderness Extremity Exam: Negative: Tenderness, Swelling Psych Exam: Positive: Oriented x 3 A-FIB/CHADSVASC A-FIB History Current/History of A-Fib/PAF?: No Assessment /Plan Plan/VTE VTE Prophylaxis Ordered?: Yes Plan Decompensated Combined Systolic and Diastolic CHF 2D ECHO notable for moderate global left ventricular systolic dysfunction with an EF of 30-35%, and left ventricular diastolic dysfunction Cont Lasix, Aldactone, and Coreg as ordered Entresto added by Cardiology this AM Monitor I/O's Fluid Restriction Daily Weights Cardiology on consult--Patient will need a Life Vest on D/C, PFS consulted We will cont to monitor the patient's clinical condition Elevated Troponin Markers likely 2/2 Decompensated CHF EKG with non-specific ST changes with no prior tracings to compare to Patient denies any c/o chest pain, palpitations Cont ASA, Coreg, Statin 2D Echo as mentioned above Monitor on Telemetry We will continue to monitor serial troponin markers Prediabetes Hemoglobin A1c noted to be 6.4% Patient counseled on dietary and lifestyle modifications He would like to incorporate this before starting any oral hypoglycemic medications Follow-up as an outpatient Hypertension Cont Coreg, Entresto, Lasix, and Aldactone Dyslipidemia Cont Statin DVT Prophylaxis Ambulation/OOB Dispo--pending continued clinical improvement, Life Vest attainment, anticipate D/C in 24-48hrs. VS, I&O, 24H, Fishbone Vital Signs/I&O Vital Signs Date Time Temp Pulse Resp B/P (MAP) Pulse Ox O2 Delivery O2 Flow Rate FiO2 07/15/18 08:55 76 140/106 07/15/18 08:00 97.7 18 100 07/12/18 12:30 Room Air I&O- Last 24 Hours up to 6 AM 07/15/18 06:00 Intake Total 1440 ml Output Total 2150 ml Balance -710 ml Laboratory Data 24H LABS Laboratory Tests 2 07/15/18 05:39: Nucleated Red Blood Cells % (auto) 0.0, Anion Gap 6L, Glomerular Filtration Rate > 60.0, Blood Urea Nitrogen 21H, Creatinine 1.04, Sodium Level 139, Potassium Level 3.9, Chloride Level 106, Carbon Dioxide Level 27, Calcium Level 8.5, Magnesium Level 2.0 CBC/BMP Laboratory Tests 07/15/18 05:39 Red Blood Count 4.41, Mean Corpuscular Volume 81.0, Mean Corpuscular Hemoglobin 26.3 L, Mean Corpuscular Hemoglobin Concent 32.5, Red Cell Distribution Width 16.2 H, Calcium Level 8.5 Microbiology Microbiology 07/12/18 Respiratory Virus Panel (PCR) ([facility]) - Final, Complete LORI ACEVES MD Jul 15, 2018 11:25
[2018-07-15 12:00] VITALS: BP 141/88
[2018-07-15 16:00] VITALS: BP 143/92
[2018-07-15] MEDS ORDERED: ENTRESTO 97-103MG TABLET (SACUBITRIL/VALSARTAN) PO SCH (18:00)
[2018-07-15 20:00] VITALS: BP 150/86
[2018-07-15] MEDS: ENTRESTO 49-51MG TABLET (SACUBITRIL/VALSARTAN) PO SCH (21:57)
[2018-07-15] MEDS: VITAMIN D 1,000 INTERNATIONAL UNITS TABLET PO SCH (21:57)
[2018-07-15] MEDS: ROSUVASTATIN 10 MG TAB (CRESTOR) PO SCH (21:58)
[2018-07-15 23:59] VITALS: BP 142/82
[2018-07-16 04:00] VITALS: BP 135/78
[2018-07-16 06:14] LABS: HEMATOCRIT 38.3 % (42.0-52.0); HEMOGLOBIN 12.4 g/dl (13.5-17.5); MEAN CORPUSCULAR HEMOGLOBIN 26.5 pg (27.0-33.0); MEAN CORPUSCULAR HGB CONC 32.4 g/dl (32.0-36.5); MEAN CORPUSCULAR VOLUME 81.8 fl (80.0-96.0); PLATELET COUNT, AUTOMATED 223 10^3/uL (150-450); RED BLOOD COUNT 4.68 10^6/uL (4.30-6.10); WHITE BLOOD COUNT 5.5 10^3/uL (4.0-10.0)
[2018-07-16 06:35] LABS: BLOOD UREA NITROGEN 21 MG/DL (7-18); CALCIUM LEVEL 8.9 MG/DL (8.5-10.1); CARBON DIOXIDE LEVEL 32 MEQ/L (21-32); CHLORIDE LEVEL 106 MEQ/L (98-107); CREATININE FOR GFR 1.24 MG/DL (0.70-1.30); GLOMERULAR FILTRATION RATE > 60.0 (>56); GLUCOSE, FASTING 116 MG/DL (70-100); POTASSIUM SERUM 4.6 MEQ/L (3.5-5.1); SODIUM LEVEL 140 MEQ/L (136-145)
[2018-07-16 08:00] VITALS: BP 136/82
[2018-07-16] MEDS: ASPIRIN 81 MG ENTERIC TAB PO SCH (08:27)
[2018-07-16] MEDS: SPIRONOLACTONE 12.5MG PER 1/2 TABLET PO SCH (08:27)
[2018-07-16] MEDS: FUROSEMIDE 20 MG TAB PO SCH (08:28)
[2018-07-16] MEDS: CARVedilol 12.5 MG TAB PO SCH ×2 (08:28→20:14)
[2018-07-16] MEDS: ENTRESTO 49-51MG TABLET (SACUBITRIL/VALSARTAN) PO SCH ×2 (08:28→20:13)
[2018-07-16] MEDS ORDERED: ECOT81TA5 PO (10:44)
[2018-07-16] MEDS ORDERED: FURO20TA2 PO (10:44)
[2018-07-16] MEDS ORDERED: ENTR1TAB7 PO (10:44)
[2018-07-16] MEDS ORDERED: SPIR-10 PO (10:44)
[2018-07-16] MEDS ORDERED: CORE25TA PO (10:44)
[2018-07-16 12:00] VITALS: BP 111/81
--- NOTE | 2018-07-16 12:39 | DS.PDOC ---
Discharge Summary General Date of Admission Jul 12, 2018 at 12:27 Date of Discharge 07/16/18 Specialist/Consultants Involve Dr. Bynum and Dr. Penaloza of Cardiology Discharge Summary PROCEDURES PERFORMED DURING STAY: None. 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 HISTORY OF PRESENT ILLNESS: . 52-year-old male with past medical history of hypertension and dyslipidemia presented to the ER with chief complaint of increasing fatigue over the last 4 months, and shortness of breath over the last 2 weeks. The patient stated that his symptoms began early in the year when he began to feel increasingly fatigued. This culminated over the last several days when he began to feel increasing shortness of breath when walking across a room. He reported feeling like he was walking underwater. Normally, the patient states that he was not restricted by any physical activity. He states that he was able to get around okay about 6 months ago. However, over the last 2 weeks he states that he is feeling more fatigued and short of breath with minimal activity. He also describes feeling short of breath when laying flat at night. He denies any lower extremity swelling or complaints of chest pain. He denies any history of coronary artery disease. In addition, the patient denies any fevers, chills, abdominal pain, cough, sputum production, or any nausea/vomiting/diarrhea. In the ER, patient was noted to be in decompensated congestive heart failure. He was given a small dose of IV Lasix and subsequently put out 1.5 L of urine with improvement of his symptoms. The patient was admitted to the hospitalist service for further evaluation and management. During hospitalization, the patient was started on diuretic therapy. The patient's volume status significantly improved thereafter. A 2-D echocardiogram revealed moderate reduction in left ventricular ejection fraction (30-35%) with combined diastolic dysfunction. The patient's medication regimen was optimized to treat heart failure with the assistance of cardiology. Also of note, the patient was noted to have an elevated troponin level which was deemed likely secondary to his decompensated congestive heart failure state. He denied any complaints of chest pain, palpitations, abdominal pain. At this time, the patient's respiratory/volume status has significantly improved and he denies any acute complaints. The patient will need a LifeVest due to decreased ejection fraction, and this has been arranged with cardiology to be done as an outpatient. I have advised the patient follow-up with his primary care physician within 7 days, and also with cardiology within 7-10 days. He is to return to the ER for any acute emergencies. DISCHARGE MEDICATIONS: Please see below. ALLERGIES: Please see below. PHYSICAL EXAMINATION ON DISCHARGE: VITAL SIGNS: Please see below. General Exam: Positive: Alert, Cooperative, No Acute Distress ENT Exam: Positive: Atraumatic, Mucous membr. moist/pink Neck Exam: No JVD Chest Exam: Clear to auscultation bilaterally Heart Exam: Positive: Rate Normal, Normal S1, Normal S2 Telemetry: Positive: Sinus Abdomen Exam: Positive: Soft; Negative: Tenderness Extremity Exam: Negative: Tenderness, Swelling Psych Exam: Positive: Oriented x 3 LABORATORY DATA: Please see below. IMAGING: DATE OF STUDY: 07/12/2018 REFERRING PROVIDER: Celso Aceves MD PATIENT LOCATION: Room 3222. REASON FOR THE ECHOCARDIOGRAM: Heart failure, unspecified. 2D MEASUREMENTS: IVS: 1.2 cm LV: 5.7 cm LVPW: 1.2 cm LA: 4.6 cm Aorta: 2.8 cm IVC: 1.7 cm DOPPLER MEASUREMENTS: Peak velocity across the aortic valve: 1.2 m/s Peak velocity across the LVOT: 0.63 m/s Mitral E: 0.97 Mitral A: 0.50 with a ratio of 1.9 Maximum tricuspid valve velocity: 2.5 m/s 2D COMMENTS: 1. Normal left ventricular wall thickness with mildly increased left ve ntricular size and a depressed global left ventricular systolic function. The estimated left ventricular systolic ejection fraction is 30% to 35%. 2. Mildly dilated left atrium. The right atrium also appeared to be mildly enlarged in limited views. Normal right ventricle. 3. The atrial septum appeared to be normal without evidence of defect or shunt. 4. Normal aortic root. 5. No pericardial effusion seen. 6. The aortic valve, mitral valve, tricuspid valve, and pulmonic valve appeared to be normal. 7. The inferior vena cava was normal in size. DOPPLER: It detects trace aortic regurgitation, moderate mitral regurgitation, and mild tricuspid regurgitation, as well as mild pulmonic regurgitation. The calculated pulmonary artery systolic pressure varies between 30-40 mmHg. A restrictive mitral inflow pattern was noted. IMPRESSION: 1. Moderate global left ventricular systolic dysfunction with mild eccentric left ventricular hypertrophy. There are some features of left ventricular diastolic dysfunction, a restrictive mitral inflow pattern was noted that can be an old cardiac marker. 2. Mildly dilated left atrium with moderate mitral regurgitation. 3. Mild tricuspid regurgitation with mild pulmonary hypertension. The right atrium appeared to be mildly enlarged in limited views. 4. Trace aortic regurgitation. 5. Mild tricuspid regurgitation. 6. No prior study for comparison. Chest two views HISTORY: Chest pain Comparison: None A minimal increase in interstitial markings is present in the lungs. The cardiac silhouette is enlarged. The pulmonary vasculature is prominent. The heart is normal in size. The pulmonary vasculature is normal in appearance. The bony structure is intact. IMPRESSION: There is a minimal increase in interstitial markings in the lungs. This may represent interstitial edema or infiltrates. CT ANGIO CHEST: HISTORY: Tachypnea. CONTRAST: Isovue 370, 75 mL. There are no filling defects in the main , right and left pulmonary arteries or their branches. Peribronchial cuffing is present. There is no pleural effusion. The heart is normal in size. There is no aneurysm. There is no mediastinal mass. Minimal degenerative change is present in the thoracic spine. IMPRESSION: 1. There is no pulmonary embolism. 2. There is peribronchial cuffing. This may represent asthma, bronchitis, or possibly interstitial pneumonitis. PROGNOSIS: Fair ACTIVITY: As tolerated. DIET: 2 g low sodium diet, 1800 mL fluid restricted diet DISCHARGE PLAN: DISPOSITION: . Home DISCHARGE INSTRUCTIONS: The patient will need a LifeVest due to decreased ejection fraction, and this has been arranged with cardiology to be done as an outpatient. I have advised the patient follow-up with his primary care physician within 7 days, and also with cardiology within 7-10 days. He is to return to the ER for any acute emergencies. DISCHARGE CONDITION: Stable. TIME SPENT ON DISCHARGE: Greater than 30 minutes. Vital Signs/I&Os Vital Signs Date Time Temp Pulse Resp B/P (MAP) Pulse Ox O2 Delivery O2 Flow Rate FiO2 07/16/18 08:28 68 136/82 07/16/18 08:00 96.8 17 94 07/12/18 12:30 Room Air I&O- Last 24 Hours up to 6 AM 07/16/18 06:00 Intake Total 1440 ml Output Total 2200 ml Balance -760 ml Laboratory Data Labs 24H Laboratory Tests 2 07/16/18 05:43: Nucleated Red Blood Cells % (auto) 0.0, Anion Gap 2L, Glomerular Filtration Rate > 60.0, Blood Urea Nitrogen 21H, Creatinine 1.24, Sodium Level 140, Potassium Level 4.6, Chloride Level 106, Carbon Dioxide Level 32, Calcium Level 8.9 CBC/BMP Laboratory Tests 07/16/18 05:43 Red Blood Count 4.68, Mean Corpuscular Volume 81.8, Mean Corpuscular Hemoglobin 26.5 L, Mean Corpuscular Hemoglobin Concent 32.4, Red Cell Distribution Width 16.1 H, Calcium Level 8.9 Microbiology Microbiology 07/12/18 Respiratory Virus Panel (PCR) ([facility]) - Final, Complete Discharge Medications Scheduled Aspirin (Ecotrin) 81 Mg Tablet.dr, 1 TAB PO DAILY for pain Carvedilol (Coreg) 25 Mg Tablet, 1 TAB PO BID Cholecalciferol (Vitamin D3) (Vitamin D3) 1,000 Unit Capsule, 1,000 UNIT PO QHS, (Reported) Furosemide (Furosemide) 20 Mg Tablet, 1 TAB PO DAILY Rosuvastatin Calcium (Rosuvastatin Calcium) 20 Mg Tablet, 10 MG PO QHS, (Reported) Sacubitril/Valsartan (Entresto 49 mg-51 mg Tablet) 1 Each Tablet, 1 TAB PO BID Spironolactone (Spironolactone) 25 Mg Tablet, 0.5 TAB PO DAILY Scheduled PRN Dextromethorphan Hb/Doxylamine (Nighttime Cough Liquid) 118 Ml Solution, 1 DOSE PO QHS PRN for COUGH, (Reported) Allergies Coded Allergies: No Known Allergies (Unverified , 11/22/16) CELSO ACEVES MD July 16, 2018 12:39
--- NOTE | 2018-07-16 13:30 | IPNPDOC ---
Text Note Date of Service The patient was seen on 07/16/18. NOTE CARDIOLOGY NOTE FOR DR MATHIS Mr. Trujillo feels well today, he has no specific complaints for us, he was given printed information on LifeVest and is should hopefully be fitted for this today. ROS: General: Feels well, no fatigue or weakness HEENT: No headache or change in vision Cardiac: No chest pain or palpitations, no swelling/edema Resp: No wheezing nor SOB GI/: No abdominal discomfort, no change in bowel habits Physical Exam: General: 52 year old male appears younger than his stated age, comfortable and in NAD Cardiac: normal s1 split s2., no murmurs rubs or gallops appreciated Resp: CTA b/l, no wheezing/rales or rhonchi appreciated Abdomen: No hepatosplenomegaly, no distension, no rebound ridgity or guarding, nabsx4, soft, no pain to palpation Extermities: no cyanosis, swelling or mottling ASSESSMENT/PLAN: Mr. Gill is a 52-year-old man who presents with congestive heart failure and is found to have cardiomyopathy with estimated left ventricular ejection fraction (LVEF) 30-35%. 1. CHF with cardiomyopathy and episodes of non-sustained v-tach -The patient's overnight telemetry was reviewed this morning, from what we can see he had 3 beats of nonsustained v tach yesterday, his hear rate is improved and seems to be in the mid 70s mostly. He received his first dose of Entresto yesterday afternoon and did well with it. We have arranged for patient to be equipped with Life vest, and will arrange this on outpatient follow up. He is to continue his Entreso, Coreg and Spirnolactone, we have reached out to [facility] to help in insurance coverage with Entresto. However, the patient was advised that he may stop by our office for samples of Entresto to get him through until his insurance could cover it. We have discontinued his valsartan. ECHO performed this visit showed EF 30-35%, with mild TR and mild pulmonary HTN, Trace AR, MR with mildly dilated left atrium and LV systolic dysfunction with mild LVH and features of LV diastolic dysfunction. This apparent HF was new for him. He can be discharged from a cardiac standpoint now, he is to return to our office in a week. He feels good today and is ready to go home. A-FIB/CHADSVASC A-FIB History Current/History of A-Fib/PAF?: No VS,Fishbone, I+O VS, Fishbone, I+O Laboratory Tests 07/16/18 05:43 Red Blood Count 4.68, Mean Corpuscular Volume 81.8, Mean Corpuscular Hemoglobin 26.5 L, Mean Corpuscular Hemoglobin Concent 32.4, Red Cell Distribution Width 16.1 H, Calcium Level 8.9 Vital Signs Date Time Temp Pulse Resp B/P (MAP) Pulse Ox O2 Delivery O2 Flow Rate FiO2 07/16/18 08:28 68 136/82 07/16/18 08:00 96.8 17 94 07/12/18 12:30 Room Air I&O- Last 24 Hours up to 6 AM 07/16/18 06:00 Intake Total 1440 ml Output Total 2200 ml Balance -760 ml GME ATTESTATION GME ATTESTATION My faculty preceptor for this patient encounter was physically present during the encounter and was fully available. All aspects of the patient interview, examination, medical decision making process, and medical care plan development were reviewed and approved by the faculty preceptor. The faculty preceptor is aware and concurs with the plan as stated in the body of this note and will attest to such by his/her cosignature. DAMIEN CLAY DO July 16, 2018 13:30
[2018-07-16 16:00] VITALS: BP 122/78
[2018-07-16 20:00] VITALS: BP 117/72
[2018-07-16] MEDS: ROSUVASTATIN 10 MG TAB (CRESTOR) PO SCH (20:13)
[2018-07-16] MEDS: VITAMIN D 1,000 INTERNATIONAL UNITS TABLET PO SCH (20:13)
[2018-07-16 23:59] VITALS: BP 132/90
[2018-07-17 04:00] VITALS: BP 121/86
[2018-07-17 06:06] LABS: HEMATOCRIT 40.6 % (42.0-52.0); HEMOGLOBIN 13.1 g/dl (13.5-17.5); MEAN CORPUSCULAR HEMOGLOBIN 26.3 pg (27.0-33.0); MEAN CORPUSCULAR HGB CONC 32.3 g/dl (32.0-36.5); MEAN CORPUSCULAR VOLUME 81.5 fl (80.0-96.0); PLATELET COUNT, AUTOMATED 252 10^3/uL (150-450); RED BLOOD COUNT 4.98 10^6/uL (4.30-6.10); WHITE BLOOD COUNT 5.4 10^3/uL (4.0-10.0)
[2018-07-17 06:20] LABS: BLOOD UREA NITROGEN 23 MG/DL (7-18); CALCIUM LEVEL 8.7 MG/DL (8.5-10.1); CARBON DIOXIDE LEVEL 29 MEQ/L (21-32); CHLORIDE LEVEL 106 MEQ/L (98-107); CREATININE FOR GFR 1.18 MG/DL (0.70-1.30); GLOMERULAR FILTRATION RATE > 60.0 (>56); GLUCOSE, FASTING 115 MG/DL (70-100); POTASSIUM SERUM 4.3 MEQ/L (3.5-5.1); SODIUM LEVEL 138 MEQ/L (136-145)
[2018-07-17 08:00] VITALS: BP 136/93
[2018-07-17] MEDS: ENTRESTO 49-51MG TABLET (SACUBITRIL/VALSARTAN) PO SCH (09:06)
[2018-07-17] MEDS: SPIRONOLACTONE 12.5MG PER 1/2 TABLET PO SCH (09:06)
[2018-07-17 09:07] VITALS: BP 136/93
[2018-07-17] MEDS: FUROSEMIDE 20 MG TAB PO SCH (09:07)
[2018-07-17] MEDS: CARVedilol 12.5 MG TAB PO SCH (09:07)
[2018-07-17] MEDS: ASPIRIN 81 MG ENTERIC TAB PO SCH (09:07)
[2018-07-17 12:00] VITALS: BP 124/71
--- NOTE | 2018-07-17 12:38 | IPNPDOC ---
Text Note Date of Service The patient was seen on 07/17/18. NOTE CARDIOLOGY NOTE FOR DR MATHIS Mr. Trujillo is still in the hospital, even though from cardiac stand point he was felt to be stable for d/c yesterday. Apparently there was a hold up with the life vest being approved through the [place] and this necessitated his stay overnight. He feels well again today, he has no specific complaints for us, denies any difficulty breathing nor CP or palpitations. ROS: General: Feels well, no fatigue or weakness HEENT: No headache or change in vision Cardiac: No chest pain or palpitations, no swelling/edema Resp: No wheezing nor SOB, no coughing GI/: No abdominal discomfort, no change in bowel habits Physical Exam: General: 52 year old male appears younger than his stated age, comfortable and in NAD and is laying in bed Cardiac: normal s1 faint splitting of s2., no murmurs rubs or gallops appreciated Resp: CTA b/l, no wheezing/rales or rhonchi appreciated Abdomen: No hepatosplenomegaly, no distension, no rebound ridgity or guarding, nabsx4, soft, no pain to palpation Extermities: no cyanosis, swelling or mottling ASSESSMENT/PLAN: Mr. Gill is a 52-year-old man who presents with congestive heart failure and is found to have cardiomyopathy with estimated left ventricular ejection fraction (LVEF) 30-35%. 1. CHF with cardiomyopathy and episodes of non-sustained v-tach -The patient's overnight telemetry was reviewed again this morning, he had a couple beats of Vtach nonsustained. He is currently receiving Entresto and is doing well with this. We have arranged for patient to be fitted with Life vest, apparently this should be accomplished today. He is to continue his Entreso, Coreg and Spirnolactone on hospital d/c, we have reached out to [facility] to help in insurance coverage with Entresto. The patient was advised that he may stop by our office for samples of Entresto to get him through until his insurance could cover it. He is unsure if he will continue to follow with our office as outpatient or if he needs to follow with [place] [facility] in [place]. We have discontinued his valsartan. ECHO performed this visit showed EF 30-35%, with mild TR and mild pulmonary HTN, Trace AR, MR with mildly dilated left atrium and LV systolic dysfunction with mild LVH and features of LV diastolic dysfunction. This apparent HF was new for him. 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 A-FIB/CHADSVASC A-FIB History Current/History of A-Fib/PAF?: No VS,Fishbone, I+O VS, Fishbone, I+O Laboratory Tests 07/17/18 05:34 Red Blood Count 4.98, Mean Corpuscular Volume 81.5, Mean Corpuscular Hemoglobin 26.3 L, Mean Corpuscular Hemoglobin Concent 32.3, Red Cell Distribution Width 15.9 H, Calcium Level 8.7 Vital Signs Date Time Temp Pulse Resp B/P (MAP) Pulse Ox O2 Delivery O2 Flow Rate FiO2 07/17/18 12:00 98.3 69 16 124/71 (88) 98 07/12/18 12:30 Room Air I&O- Last 24 Hours up to 6 AM 07/17/18 06:00 Intake Total 930 ml Output Total 2175 ml Balance -1245 ml GME ATTESTATION GME ATTESTATION My faculty preceptor for this patient encounter was physically present during the encounter and was fully available. All aspects of the patient interview, examination, medical decision making process, and medical care plan development were reviewed and approved by the faculty preceptor. The faculty preceptor is aware and concurs with the plan as stated in the body of this note and will attest to such by his/her cosignature. DAMIEN CLAY DO July 17, 2018 12:38 Amanuel Mathis MD July 20, 2018 18:55
--- NOTE | 2018-07-17 12:38 | IPNPDOC ---
Subjective Date Seen The patient was seen on 07/17/18. Subjective Chief Complaint/HPI Patient seen and examined at the bedside this morning. His discharge was delayed yesterday evening as there was concerns about the patient's life as not being approved by insurance. Otherwise, at this time the patient denies any acute complaints. Objective Physical Examination General Exam: Positive: Alert, Cooperative, No Acute Distress ENT Exam: Positive: Atraumatic, Mucous membr. moist/pink Chest Exam: Positive: Diminished; Negative: Wheezing Heart Exam: Positive: Rate Normal, Normal S1, Normal S2; Negative: Murmurs, Rubs Telemetry: Positive: Sinus Abdomen Exam: Positive: Normal bowel sounds, Soft; Negative: Tenderness Extremity Exam: Negative: Tenderness, Swelling Psych Exam: Positive: Oriented x 3 Assessment /Plan Plan/VTE VTE Prophylaxis Ordered?: Yes Plan Decompensated Combined Systolic and Diastolic CHF 2D ECHO notable for moderate global left ventricular systolic dysfunction with an EF of 30-35%, and left ventricular diastolic dysfunction Cont Lasix, Aldactone, and Coreg as ordered Entresto added by Cardiology AM Monitor I/O's Fluid Restriction Daily Weights Cardiology on consult--Patient will need a Life Vest--patient to have this coordinated with cardiology as an outpatient. We will cont to monitor the patient's clinical condition Elevated Troponin Markers likely 2/2 Decompensated CHF EKG with non-specific ST changes with no prior tracings to compare to Patient denies any c/o chest pain, palpitations Cont ASA, Coreg, Statin, Entresto 2D Echo as mentioned above Monitor on Telemetry We will continue to monitor serial troponin markers Prediabetes Hemoglobin A1c noted to be 6.4% Patient counseled on dietary and lifestyle modifications He would like to incorporate this before starting any oral hypoglycemic medications Follow-up as an outpatient Hypertension Cont Coreg, Entresto, Lasix, and Aldactone Dyslipidemia Cont Statin DVT Prophylaxis Ambulation/OOB Dispo--patient to be discharged home today, and he has been assured by [facility] that he can follow-up with them as an outpatient for Entresto samples if it is cost prohibitive, and they will also help him set up with having a life vest fitting arranged. VS, I&O, 24H, Fishbone Vital Signs/I&O Vital Signs Date Time Temp Pulse Resp B/P (MAP) Pulse Ox O2 Delivery O2 Flow Rate FiO2 07/17/18 12:00 98.3 69 16 124/71 (88) 98 07/12/18 12:30 Room Air I&O- Last 24 Hours up to 6 AM 07/17/18 06:00 Intake Total 930 ml Output Total 2175 ml Balance -1245 ml Laboratory Data 24H LABS Laboratory Tests 2 07/17/18 05:34: Nucleated Red Blood Cells % (auto) 0.0, Anion Gap 3L, Glomerular Filtration Rate > 60.0, Blood Urea Nitrogen 23H, Creatinine 1.18, Sodium Level 138, Potassium Level 4.3, Chloride Level 106, Carbon Dioxide Level 29, Calcium Level 8.7 CBC/BMP Laboratory Tests 07/17/18 05:34 Red Blood Count 4.98, Mean Corpuscular Volume 81.5, Mean Corpuscular Hemoglobin 26.3 L, Mean Corpuscular Hemoglobin Concent 32.3, Red Cell Distribution Width 15.9 H, Calcium Level 8.7 Microbiology Microbiology 07/12/18 Respiratory Virus Panel (PCR) ([facility]) - Final, Complete LORI ACEVES MD July 17, 2018 12:38
== END 2018-07-17 16:32 | disposition home or self-care (01) | DRG 291 ==
LOC: M ED 07:49 → M ED INP 12:27 → M PCU 13:30
PROVIDERS: ADMIT Internal Medicine; ATTEND Internal Medicine
DX: I13.0 Hypertensive heart and chronic kidney disease with heart failure and stage 1 through stage 4 chronic kidney disease, or unspecified chronic kidney disease (principal); I50.43 Acute on chronic combined systolic (congestive) and diastolic (congestive) heart failure; N18.9 Chronic kidney disease, unspecified; E78.5 Hyperlipidemia, unspecified; I36.0 Nonrheumatic tricuspid (valve) stenosis; I27.20 Pulmonary hypertension, unspecified; Z79.82 Long term (current) use of aspirin; Z79.899 Other long term (current) drug therapy; Z87.891 Personal history of nicotine dependence; D64.9 Anemia, unspecified; I42.9 Cardiomyopathy, unspecified

== ENCOUNTER → 2018-09-10 | Outpatient (CLI) | payer OTHER ==
[~2018-09-10] MED LIST changes: +CORE25TA PO; +DEXT118S PO; +ECOT81TA5 PO; +ENTR1TAB7 PO; +FURO20TA2 PO; +LOPR1TAB6 PO; +ROSU10TA5 PO; +ROSU20TA4 PO; +SPIR-10 PO; +VITA-183 PO
[2018-09-10 16:17] LABS: BLOOD UREA NITROGEN 15 MG/DL (7-18); CALCIUM LEVEL 9.2 MG/DL (8.5-10.1); CARBON DIOXIDE LEVEL 29 MEQ/L (21-32); CHLORIDE LEVEL 107 MEQ/L (98-107); GLOMERULAR FILTRATION RATE > 60.0 (>56); GLUCOSE, FASTING 93 MG/DL (70-100); POTASSIUM SERUM 4.4 MEQ/L (3.5-5.1); SODIUM LEVEL 140 MEQ/L (136-145)
== END ==
LOC: M LAB 15:29
PROVIDERS: ATTEND Physician Assistant Medical
DX: E87.5 Hyperkalemia (principal)

== ENCOUNTER → 2021-04-05 | Outpatient (CLI) | payer OTHER ==
[~2021-04-05] MED LIST changes: +ENTR1TAB PO; +METF-838 PO; -ROSU10TA5 PO; +ROSU10TA6 PO; -ROSU20TA4 PO; +ROSU20TA5 PO; +VITA-168 PO
== END ==
LOC: M LABSMTC 09:36
PROVIDERS: ATTEND Anesthesiology
DX: Z01.812 Encounter for preprocedural laboratory examination (principal); Z11.52 Encounter for screening for COVID-19

== ENCOUNTER → 2022-07-19 | Outpatient (CLI) | payer OTHER | LOC: M RAD 17:03 | PROVIDERS: ATTEND Nurse Practitioner Family | DX: Z12.2 Encounter for screening for malignant neoplasm of respiratory organs (principal); Z87.891 Personal history of nicotine dependence ==

== ENCOUNTER 2023-01-28 08:00 | Day surgery (SDC) | payer OTHER ==
[~2023-01-28] VITALS: Ht 182.9 cm; Wt 98.2 kg
[~2023-01-28 08:00] MED LIST changes: +LIDOCAINE 2% 100MG/5ML SDV (FOR ANES.) As Ordered ONE; +NS 1,000 ML IV ONE; -ROSU20TA5 PO; +ROSU20TA61 PO; +fentaNYL 100 MCG/2 ML INJECTION As Ordered ONE; +propofoL 200 MG/20 ML VIAL As Ordered ONE
[2023-01-28 10:39] VITALS: BP 144/86; TEMP 96.6; O2SAT 97
== END 2023-01-28 10:42 | disposition home or self-care (01) ==
LOC: M OPP 08:00
PROVIDERS: ATTEND Internal Medicine Gastroenterology
DX: Z12.11 Encounter for screening for malignant neoplasm of colon (principal); K64.0 First degree hemorrhoids; K29.50 Unspecified chronic gastritis without bleeding; Z87.19 Personal history of other diseases of the digestive system; Z86.010 Personal history of colon polyps; I11.0 Hypertensive heart disease with heart failure; I50.9 Heart failure, unspecified; E11.9 Type 2 diabetes mellitus without complications; E78.00 Pure hypercholesterolemia, unspecified; K21.9 Gastro-esophageal reflux disease without esophagitis; Z79.899 Other long term (current) drug therapy
CPT/HCPCS: 43239; 45378; 88305; J3010

== ENCOUNTER 2024-03-03 20:18 | Emergency (ER) | payer OTHER ==
[~2024-03-03] VITALS: Ht 182.9 cm; Wt 90.9 kg
[~2024-03-03 20:18] MED LIST changes: -LIDOCAINE 2% 100MG/5ML SDV (FOR ANES.) As Ordered ONE; -NS 1,000 ML IV ONE; -ROSU10TA6 PO; +ROSU10TA61 PO; -ROSU20TA61 PO; +ROSU20TA86 PO; -fentaNYL 100 MCG/2 ML INJECTION As Ordered ONE; -propofoL 200 MG/20 ML VIAL As Ordered ONE
[2024-03-03 21:25] LABS: BASO % 0.4 % (0.0-1.0); EOS % 0.4 % (0.0-3.0); HEMATOCRIT 40.2 % (42.0-52.0); HEMOGLOBIN 13.1 g/dl (13.5-17.5); LYMPH # 1.3 10^3/uL (1.5-5.0); LYMPH % 26.3 % (24.0-44.0); MEAN CORPUSCULAR HEMOGLOBIN 27.3 pg (27.0-33.0); MEAN CORPUSCULAR HGB CONC 32.6 g/dl (32.0-36.5); MEAN CORPUSCULAR VOLUME 83.9 fl (80.0-96.0); MONO # 0.3 10^3/uL (0.0-0.8); MONO % 6.3 % (2.0-8.0); NEUTROPHILS # 3.4 10^3/uL (1.5-8.5); NEUTROPHILS % 66.4 % (36.0-66.0); PLATELET COUNT, AUTOMATED 186 10^3/uL (150-450); RED BLOOD COUNT 4.79 10^6/uL (4.30-6.10); WHITE BLOOD COUNT 5.1 10^3/uL (4.0-10.0)
[2024-03-03 21:55] LABS: BLOOD UREA NITROGEN 32 MG/DL (9-23); CALCIUM LEVEL 9.3 MG/DL (8.3-10.6); CARBON DIOXIDE LEVEL 27 MMOL/L (20-31); CHLORIDE LEVEL 108 MMOL/L (98-107); CK-MB VALUE MASS < 1.0 NG/ML (<3.6); CREATININE FOR GFR 1.23 MG/DL (0.70-1.30); GLOMERULAR FILTRATION RATE > 60.0 (>49); GLUCOSE, FASTING 162 MG/DL (74-106); SODIUM LEVEL 142 MMOL/L (136-145)
[2024-03-03 21:58] LABS: CPK CREATINE PHOSPHOKINASE 132 U/L (46-171); MB/CK RELATIVE INDEX 0.75 (< OR =4)
[2024-03-03] MEDS: BOOSTRIX VACCINE (TETANUS/DIPHTH/ACEL. PERTUSSIS) 0.5ML SYR IM.IMMUN ONE (22:46)
[2024-03-03 23:00] LABS: CK-MB VALUE MASS < 1.0 NG/ML (<3.6)
[2024-03-03 23:06] LABS: CPK CREATINE PHOSPHOKINASE 163 U/L (46-171); MB/CK RELATIVE INDEX 0.61 (< OR =4)
[2024-03-03] MEDS: AUGMENTIN 875 MG TAB PO ONE (23:51)
[2024-03-03] MEDS: traMADol 50 MG TAB PO ONE (23:51)
[2024-03-03] MEDS: ACETAMINOPHEN 325 MG TAB PO ONE (23:52)
[2024-03-04 01:20] LABS: CK-MB VALUE MASS < 1.0 NG/ML (<3.6)
[2024-03-04 01:25] LABS: CPK CREATINE PHOSPHOKINASE 202 U/L (46-171); MB/CK RELATIVE INDEX 0.49 (< OR =4)
[2024-03-04] MEDS ORDERED: AMOX875T2 PO (01:34)
[2024-03-04] MEDS: traMADol 50 MG TAB (HOME DOSE PACK) PO ONE (01:46)
[2024-03-04] MEDS ORDERED: LIDOCAINE 2% MDV 20ML VIAL SC ONE (01:55)
[2024-03-04] MEDS ORDERED: BACITRACIN OINTMENT 30GM TUBE TOP PRN (02:15)
[2024-03-04 02:18] VITALS: BP 124/74; TEMP 98.5; O2SAT 98
== END 2024-03-04 02:21 | disposition home or self-care (01) ==
LOC: M ED 20:18
DX: S61.452A Open bite of left hand, initial encounter (principal); W54.0XXA Bitten by dog, initial encounter; Y92.009 Unspecified place in unspecified non-institutional (private) residence as the place of occurrence of the external cause; Y93.89 Activity, other specified; Y99.9 Unspecified external cause status; R79.9 Abnormal finding of blood chemistry, unspecified; I50.9 Heart failure, unspecified; F17.200 Nicotine dependence, unspecified, uncomplicated; Z79.899 Other long term (current) drug therapy

== ENCOUNTER 2024-03-10 11:47 | Emergency (ER) | payer OTHER ==
[~2024-03-10] VITALS: Ht 182.9 cm; Wt 97.8 kg
[~2024-03-10 11:47] MED LIST changes: +AMOX875T2 PO
[2024-03-10 11:53] VITALS: BP 126/67; TEMP 96.9; O2SAT 99
== END 2024-03-10 13:27 | disposition left against medical advice (07) ==
LOC: M ED 11:47
DX: Z53.21 Procedure and treatment not carried out due to patient leaving prior to being seen by health care provider (principal)

== ENCOUNTER 2025-03-01 01:26 | Observation (INO) | payer OTHER ==
[~2025-03-01] VITALS: Ht 182.9 cm; Wt 100.6 kg
[~2025-03-01 01:26] MED LIST changes: -ROSU10TA61 PO; +ROSU10TA90 PO
[2025-03-01 03:53] LABS: VENOUS BASE EXCESS 0.4 (-2.0-2.0); VENOUS HCO3 26.4 MMOL/L (23.0-27.0); VENOUS O2 SATURATION 78.3 % (60.0-80.0); VENOUS PARTIAL PRESSURE CO2 48.3 mmHg (38.0-50.0); VENOUS PARTIAL PRESSURE O2 49.7 mmHg (30.0-50.0); VENOUS PH 7.356 UNITS (7.330-7.430); VENOUS STANDARD HCO3 24.4 MMOL/L; VENOUS TOTAL CO2 27.9 MMOL/L (24.0-28.0)
[2025-03-01 04:22] LABS: BASO # 0.0 10^3/uL (0.0-0.2); BASO % 0.2 % (0.0-1.0); EOS # 0.0 10^3/uL (0.0-0.5); EOS % 0.7 % (0.0-3.0); LYMPH # 0.9 10^3/uL (1.5-5.0); LYMPH % 15.9 % (24.0-44.0); MONO # 0.4 10^3/uL (0.0-0.8); MONO % 7.6 % (2.0-8.0); NEUTROPHILS # 4.4 10^3/uL (1.5-8.5); NEUTROPHILS % 75.4 % (36.0-66.0); PLATELET COUNT, AUTOMATED 218 10^3/uL (150-450)
[2025-03-01 04:26] LABS: ALT/SGPT 61.0 U/L (7.0-40); AST/SGOT 39.0 U/L (<34); CALCIUM LEVEL 8.8 MG/DL (8.3-10.6); CARBON DIOXIDE LEVEL 27.0 MMOL/L (20-31); CHLORIDE LEVEL 105.0 MMOL/L (98-107); CK-MB VALUE MASS 2.1 NG/ML (<3.6); CREATININE FOR GFR 1.07 MG/DL (0.70-1.30); GLOMERULAR FILTRATION RATE 79.0 (>49); POTASSIUM SERUM 3.9 MMOL/L (3.5-5.1); SODIUM LEVEL 140.0 MMOL/L (136-145)
[2025-03-01 04:39] LABS: CPK CREATINE PHOSPHOKINASE 206.0 U/L (46-171); MB/CK RELATIVE INDEX 1.01 (< OR =4)
[2025-03-01 05:08] LABS: INR 1.34
[2025-03-01] MEDS ORDERED: ISOVUE-370 76% 100 ML VIAL As Ordered ONE (05:25)
[2025-03-01 05:32] LABS: CK-MB VALUE MASS 1.8 NG/ML (<3.6)
[2025-03-01 05:34] LABS: CPK CREATINE PHOSPHOKINASE 186.0 U/L (46-171); MB/CK RELATIVE INDEX 0.96 (< OR =4)
[2025-03-01] MEDS: FUROSEMIDE 40 MG/4 ML VIAL IV ONE (05:37)
[2025-03-01] MEDS: POTASSIUM CHLORIDE 10MEQ SR TABLET PO ONE (09:22)
[2025-03-01] MEDS ORDERED: FERR324T2 PO (09:38)
[2025-03-01] MEDS ORDERED: CARV25TA PO (09:38)
[2025-03-01] MEDS ORDERED: FURO20TA2 PO (09:38)
[2025-03-01] MEDS ORDERED: JARD1TAB3 PO (09:38)
[2025-03-01] MEDS ORDERED: ROSU40TA81 PO (09:38)
[2025-03-01] MEDS ORDERED: HOME MED LIST COMPLETE! XX SCH (09:45)
[2025-03-01] MEDS ORDERED: ACETAMINOPHEN 325 MG TAB PO PRN (10:25)
[2025-03-01] MEDS ORDERED: DEXTROSE 50% 50 ML SYRINGE IV PRN (11:00)
[2025-03-01] MEDS ORDERED: GLUCAGON INJ 1 MG VIAL SC PRN (11:00)
[2025-03-01] MEDS ORDERED: GLUCOSE 4 GM CHEW PO PRN (11:00)
[2025-03-01] MEDS: INSULIN LISPRO (NovoLOG) PER UNIT SC SCH ×2 (12:00→20:37)
[2025-03-01 12:26] LABS: CK-MB VALUE MASS 1.6 NG/ML (<3.6); CPK CREATINE PHOSPHOKINASE 157.0 U/L (46-171); MB/CK RELATIVE INDEX 1.01 (< OR =4)
[2025-03-01 12:40] VITALS: BP 147/97; TEMP 98; O2SAT 97
[2025-03-01] MEDS: FERROUS SULFATE 325 MG TAB PO SCH (12:53)
[2025-03-01] MEDS: DAPAGLIFLOZIN PROPANEDIOL 10 MG TABLET PO SCH (12:53)
[2025-03-01] MEDS: ENTRESTO 24-26 MG TABLET (SACUBITRIL/VALSARTAN) PO SCH (13:34)
[2025-03-01] MEDS: FUROSEMIDE 40 MG/4 ML VIAL IV SCH (17:43)
[2025-03-01 19:49] VITALS: BP 135/87; TEMP 98; O2SAT 97
[2025-03-01] MEDS: ROSUVASTATIN 10 MG TAB PO SCH (20:35)
[2025-03-02 04:26] VITALS: BP 143/98; TEMP 97.8; O2SAT 96
[2025-03-02 07:44] LABS: BASO # 0.0 10^3/uL (0.0-0.2); BASO % 0.4 % (0.0-1.0); EOS # 0.1 10^3/uL (0.0-0.5); EOS % 1.1 % (0.0-3.0); LYMPH # 0.7 10^3/uL (1.5-5.0); LYMPH % 12.7 % (24.0-44.0); MONO # 0.4 10^3/uL (0.0-0.8); MONO % 7.4 % (2.0-8.0); NEUTROPHILS # 4.2 10^3/uL (1.5-8.5); NEUTROPHILS % 78.0 % (36.0-66.0); PLATELET COUNT, AUTOMATED 184 10^3/uL (150-450)
[2025-03-02 08:17] LABS: CALCIUM LEVEL 9.2 MG/DL (8.3-10.6); CARBON DIOXIDE LEVEL 29.0 MMOL/L (20-31); CHLORIDE LEVEL 103.0 MMOL/L (98-107); CREATININE FOR GFR 1.02 MG/DL (0.70-1.30); GLOMERULAR FILTRATION RATE 83.6 (>49); POTASSIUM SERUM 3.6 MMOL/L (3.5-5.1); SODIUM LEVEL 140.0 MMOL/L (136-145)
[2025-03-02 12:00] VITALS: BP 123/89; TEMP 98.1; O2SAT 99
[2025-03-02 20:00] VITALS: BP 142/97; TEMP 97.7; O2SAT 95
[2025-03-02] MEDS: POTASSIUM CHLORIDE 10MEQ SR TABLET PO ONE (21:35)
[2025-03-02 21:58] LABS: CALCIUM LEVEL 9.4 MG/DL (8.3-10.6); CARBON DIOXIDE LEVEL 35.0 MMOL/L (20-31); CHLORIDE LEVEL 103.0 MMOL/L (98-107); CREATININE FOR GFR 1.06 MG/DL (0.70-1.30); GLOMERULAR FILTRATION RATE 79.9 (>49); POTASSIUM SERUM 3.7 MMOL/L (3.5-5.1); SODIUM LEVEL 143.0 MMOL/L (136-145)
[2025-03-03 04:00] VITALS: BP 138/93; TEMP 98.1; O2SAT 95
[2025-03-03 08:53] VITALS: BP 128/78
== END 2025-03-03 12:22 | disposition home or self-care (01) ==
LOC: M ED 01:26 → M ED INP 01:27 → M MS4PR 12:40
PROVIDERS: ADMIT Internal Medicine; ATTEND Internal Medicine
DX: I11.0 Hypertensive heart disease with heart failure (principal); E78.2 Mixed hyperlipidemia; E11.42 Type 2 diabetes mellitus with diabetic polyneuropathy; I50.23 Acute on chronic systolic (congestive) heart failure; E80.6 Other disorders of bilirubin metabolism; Z79.899 Other long term (current) drug therapy; I24.89 Other forms of acute ischemic heart disease
CPT/HCPCS: 36415; 71045; 71275; 74018; 76705; 80048; 80076; 82550; 82553; 82803; 83880; 84484; 85025; 85610; 87486; 87581; 87633; 87798; 93005; 93041; 93306; 93970; 94760; 96374; 96376; 99285; J1938; Q9967